=== PATIENT | male | born 2000 | race Caucasian/White ===

== ENCOUNTER 2022-05-03 10:41 | Emergency (ER) | payer OTHER, SELFPAY ==
[2022-05-03 11:11] VITALS: BP 118/86; PULSE 84; RESP 17; TEMP 36.4; O2SAT 97
--- NOTE | 2022-05-03 11:34 | ED.GENADUL_ITS ---
Discharge Plan Disposition Patient Disposition: HOME Condition: Stable Discharge Details Clinical Impression: Asthma Primary Care Provider: [place],Local ED Provider: Anni Gomez Home Meds and New Rx's Prescriptions: New prednisone 20 mg tablet 40 mg PO ONCE Qty: 10 0RF Continued albuterol 90 mcg/actuation Aerosol See Rx Instructions .ROUTE .COMPLEX Rx Instructions: Inhale 2 puffs 3-4 times per week as needed Discharge Instructions Instructions: Asthma (ED) Additional Instructions: Use your inhaler with spacer every 4 hours, 2 puffs Take the steroid as prescribed Establish care with a primary care physician you have been placed on the care management list for follow-up Discharge Data Discharge Date/Time-TO BE ENTERED AT DEPARTURE: 05/03/22 11:53 Medical Decision Making Patient appears well, no respiratory distress, lungs are clear to auscultation and no hypoxia, no indication for x-ray imaging at this time Will give a spacer as patient has an albuterol inhaler and has not been using spacer Will give course of steroids Return precautions discussed and patient expressed understanding Placed on list establish care with primary care physician and return precautions reviewed and patient expressed understanding, vital stable, low suspicion for bacterial or embolic component based on stable vitals and exam Medical Records Medical records reviewed: Yes I reviewed the patient's medical records. Lab Data Lab results reviewed: Yes I reviewed the patient's lab results. HPI General Date/Time Provider Initiated Documentation: 05/03/22 11:18 . HPI Narrative: This 21-year-old male presents with report of shortness of breath and cough for the past week. History of asthma uses inhaler without relief in symptoms. Denies any fever or chills. Denies tobacco use. Denies any chest pain, otherwise healthy reportedly. Related Data Home Medications Medication Instructions Recorded Confirmed albuterol 90 mcg/actuation aerosol See Rx Instructions .Route .COMPLEX 05/03/22 05/03/22 inhaler prednisone 20 mg tablet 40 mg PO ONCE #10 tabs 05/03/22 Previous Rx's Medication Instructions Recorded prednisone 20 mg tablet 40 mg PO ONCE #10 tabs 05/03/22 Allergies Allergy/AdvReac Type Severity Reaction Status Date / Time No Known Allergies Allergy Unverified 05/03/22 11:14 General Stated Complaint: RespSymp JAGDISH: 4 Review of Systems All systems reviewed & are unremarkable except as noted in HPI and below PFSH All Active Problems (Updated 05/03/22 @ 11:36 by KASIE Brumfield) Asthma (Chronic) Social History Smoking/Tobacco Use Status: Never Smoking risk assessment performed?: Yes Alcohol Intake: never Drug use: Never Substance use type: does not use Do you feel safe at home: Yes Do you feel safe in your relationship?: Yes Exam Const General: cooperative and comfortable Resp Effort & Inspection: normal respiratory effort Auscultation: clear to auscultation bilaterally Cardio Rate: regular rate Rhythm: regular rhythm Skin General skin exam: no rashes or lesions noted Neuro General: patient alert and patient oriented x3 Course Vital Signs Vital signs: Vital Signs Temperature 36.4 C 05/03/22 11:11 Pulse 84 05/03/22 11:11 Respiratory Rate 17 05/03/22 11:11 Blood Pressure 118/86 05/03/22 11:11 Pulse Oximetry 97 05/03/22 11:11 Temperature 36.4 C 05/03/22 11:11 Temperature Source Oral 05/03/22 11:11 Pulse 84 05/03/22 11:11 Respiratory Rate 17 05/03/22 11:11 Respiratory Effort Non-Labored 05/03/22 11:14 Blood Pressure 118/86 05/03/22 11:11 Blood Pressure Position Sitting 05/03/22 11:11 Pulse Oximetry 97 05/03/22 11:11 Oxygen Delivery Method Room Air 05/03/22 11:11 Oxygen Flow Rate 0 05/03/22 11:11 Pain Level 5 05/03/22 11:11
--- NOTE | 2022-05-03 15:47 | NUR.NOTE ---
Nursing Note: Referral given to Care Management needs PCP; asthma exacerbation/establish care; within 2 weeks,
--- NOTE | 2022-05-04 12:16 | PDOC.ERCMACT ---
- If Service Date Differs Date of service: 05/04/22 Time of Service: 12:16 Care Management Activity Note Hi presents in the ED for asthma exacerbation. At the request of ED provider, CM coordinates a referral to the [facility] to assist Hi in obtaining a follow up appointment with a medical provider.
== END 2022-05-03 11:53 | disposition home or self-care (01) ==
PROVIDERS: Emergency Provider Physician Assistant
DX: J45.909 Unspecified asthma, uncomplicated (principal)
CPT/HCPCS: 99283

== ENCOUNTER 2022-05-05 09:56 | Outpatient (CLI) | payer OTHER, SELFPAY ==
--- NOTE | 2022-05-05 | DI.RAD_ITS ---
Exam(s) XR CHEST 2V PA LATERAL EXAM: XR CHEST 2V PA LATERAL CLINICAL HISTORY: DYSPNEA, TECHNIQUE: 2D digital imaging was performed of the chest. Two images were obtained. PA and lateral views were obtained. COMPARISON: No exams were available for comparison FINDINGS: MEDIASTINUM: Normal. HEART: Normal. PULMONARY VASCULATURE: Normal. LUNGS: Clear. PLEURAL SPACE: No pleural effusion or pneumothorax. BONE:Within normal limits for the patient's age. OTHER FINDINGS:Normal. IMPRESSION: No acute pulmonary findings. DATA REPOSITORY: RADIATION DOSE DELIVERED:
== END 2022-05-05 10:16 ==
PROVIDERS: Visit Provider Physician Assistant
DX: R06.09 Other forms of dyspnea (principal)
CPT/HCPCS: 71046

== ENCOUNTER 2022-05-06 13:09 | Outpatient (CLI) | payer OTHER, SELFPAY ==
[2022-05-06] MEDS: Albuterol HFA 18 GM 200 PUFF INH IH (16:02)
[2022-05-06] MEDS: Methacholine 100 MG VIAL IH (16:02)
[2022-05-06] MEDS: Inhaler, Assist Device 1 EACH MC (16:03)
--- NOTE | 2022-05-18 15:13 | W.PFT ---
Date of service: 05/06/22 Time of Service: 14:06 Pulmonary Function Test Result Requesting Provider Aurea Kaufman Indications: Asthma Interpretation Spirometry: There is no airflow obstruction at baseline. There was a 12% decrease in FEV1% with administration of 16mg/mL methacholine. Impression Normal spirometry. Negative methacholine challenge test. Clinical Correlation therefore is recommended.
== END 2022-05-06 13:10 | disposition home or self-care (01) ==
PROVIDERS: Visit Provider Physician Assistant
DX: J45.909 Unspecified asthma, uncomplicated (principal); R06.09 Other forms of dyspnea; R05.8 Other specified cough
CPT/HCPCS: 94060; 94070; J7674

== ENCOUNTER 2022-07-12 15:09 | Outpatient (CLI) | payer OTHER, SELFPAY ==
[2022-07-12 16:56] LABS: Abs Immature Grans 0.06 10^3/uL (0.0-0.06); Absolute Basophil Count 0.05 10^3/uL (0.0-0.2); Absolute Eosinophil Count 0.07 10^3/uL (0.0-0.7); Absolute Lymphocyte Count 1.56 10^3/uL (1.2-3.4); Basophils % 0.4; Eosinophils % 0.5; HCT 44.5 % (40.0-50.0); HGB 14.3 g/dL (13.5-17.5); Immature Grans % 0.4; Lymphocytes % 11.5; MCH 27.4 pg (27.0-33.0); MCHC 32.1 % (32.0-36.0); MCV 85 fL (80-95); Monocytes % 6.3; Neutrophils % 80.9; Platelet Count 337 10^3/uL (130-400); RBC 5.22 10^6/uL (4.36-5.78); RDW 12.7 % (11.8-14.1); RDW-SD 38.8 fL
[2022-07-12 16:58] LABS: Absolute Monocyte Count 0.86 10^3/uL (0.1-0.8)
[2022-07-12 17:34] LABS: TSH (W/Ref FT4) 0.92 uIU/mL (0.36-3.74)
== END 2022-07-12 15:10 | disposition home or self-care (01) ==
LOC: PUL 15:10 → LBN 16:40
PROVIDERS: PCP Physician Assistant; Visit Provider Student in an Organized Health Care Education/Training Program
DX: R05.8 Other specified cough (principal); R06.09 Other forms of dyspnea; R06.02 Shortness of breath
CPT/HCPCS: 84443; 85025; 86140

== ENCOUNTER 2022-07-16 01:51 | Outpatient (CLI) | payer OTHER, SELFPAY ==
[2022-07-16] MEDS: Albuterol HFA 18 GM 200 PUFF INH IH (13:35)
[2022-07-16] MEDS: Inhaler, Assist Device 1 EACH MC (13:35)
--- NOTE | 2022-07-16 13:42 | W.PFT ---
Date of service: 07/16/22 Time of Service: 12:33 Pulmonary Function Test Result Indications: Dyspnea on exertion Interpretation Spirometry: There is no airflow limitation. There is no significant bronchodilator response. Normal MIP. MEP is low. Lung Volumes: Normal lung volumes. Diffusion Capacity: Normal diffusion. Airway Pressure: Normal airways resistance. Impression Normal pulmonary function testing. A low MEP alone has unclear clinical significance. Clinical Correlation therefore is recommended.
== END 2022-07-16 01:52 | disposition home or self-care (01) ==
LOC: RT 01:51
PROVIDERS: Visit Provider Student in an Organized Health Care Education/Training Program
DX: R06.09 Other forms of dyspnea (principal)
CPT/HCPCS: 94060; 94726; 94729

== ENCOUNTER 2022-11-24 19:28 | Emergency (ER) | payer SELFPAY ==
[2022-11-24 19:30] VITALS: BP 137/83; PULSE 100; RESP 12; TEMP 36.6; O2SAT 100
[2022-11-24 21:40] LABS: Abs Immature Grans 0.04 10^3/uL (0.0-0.06); Absolute Basophil Count 0.06 10^3/uL (0.0-0.2); Absolute Lymphocyte Count 1.86 10^3/uL (1.2-3.4); Absolute Monocyte Count 0.88 10^3/uL (0.1-0.8); Basophils % 0.5; Eosinophils % 0.8; HCT 43.6 % (40.0-50.0); HGB 14.4 g/dL (13.5-17.5); Immature Grans % 0.3; Lymphocytes % 15.2; MCH 27.5 pg (27.0-33.0); MCV 83 fL (80-95); MPV 9.5 fL (8.0-11.0); Monocytes % 7.2; Platelet Count 326 10^3/uL (130-400); RBC 5.23 10^6/uL (4.36-5.78); RDW 12.5 % (11.8-14.1); WBC 12.24 10^3/uL (4.4-10.8)
--- NOTE | 2022-11-24 21:45 | DI.CT_ITS ---
Exam(s) CT CHEST/ABD/PEL W EXAM: CT CHEST/ABD/PEL W CLINICAL HISTORY: ABD pain RLQ. TECHNIQUE: Imaging Protocol: Axial computed tomography images with coronal and sagittal reformatted images were created and reviewed CONTRAST MATERIAL: Intravenous: Omnipaque 350 Contrast volume:100 ml Oral: None COMPARISON: No exams were available for comparison FINDINGS: CHEST: LUNGS: There are no infiltrates nor pleural effusions. No ominous nodules. No findings in the trach ea and mainstem bronchi. No bronchiectasis.. MEDIASTINUM: There is no hilar nor mediastinal adenopathy. Visualized thyroid unremarkable. CARDIAC: Heart size is normal. There is no pericardial effusion.Caliber of the thoracic aorta is wit hin normal limits. OSSEOUS: No significant osseous lesions.. ABDOMEN: There is no ascites. LIVER: There are no focal hepatic lesions nor dilatation of intrahepatic ducts. GALLBLADDER/BILIARY: No obvious gallbladder pathology. CBD is not dilated. PANCREAS: No evidence of pancreatic mass nor dilatation of the pancreatic duct. SPLEEN: Spleen is not enlarged. There are no intrasplenic lesions. Splenic and portal veins are medina nt. ADRENALS: There are no significant adrenal masses. KIDNEYS: No calculi nor hydronephrosis. No solid renal masses. No cysts evident. ABDOMINAL AORTA: Abdominal aorta is not enlarged. LYMPH NODES: There is no retroperitoneal nor paraaortic adenopathy. ABDOMINAL WALL: No evidence of significant anterior abdominal wall nor inguinal hernia. GI: : Diameter ismostly fluid-filled and upper normal diameter. Correlation with diarrhea. Mild dif fuse small-bowel enteritis pattern noted. There is no evidence of small-bowel obstruction. PELVIS: LYMPH NODES: There is no intrapelvic nor inguinal adenopathy. GI: No evidence of appendicitis.No evidence of sigmoid diverticulitis. URINARY BLADDER: No calculi nor masses evident REPRODUCTIVE: Prostate gland is not enlarged. Seminal vesicles unremarkable. OSSEOUS: No significant osseous lesions. No fractures. SI joints unremarkable. IMPRESSION: 1. Colon is filled with fluid and upper normal diameter. There also appears to be an element of smal l-bowel enteritis pattern. No evidence of small bowel obstruction, free air, nor abscess. 2. No evidence of acute appendicitis nor diverticulitis. 3. No significant intrathoracic findings. RADIATION DOSE DELIVERED: 1,323.93mGy.cm Total DLP DATA REPOSITORY: All CT scans at this facility are submitted to the National Radiology Data Registry (NRDR) Dose Index Registry (DIR) with the [employer] (ACR). RADIATION OPTIMIZATION: All CT scans at this facility use at least one of these dose optimization te chniques: automated exposure control; mA and/or kV adjustment per patient size (includes targeted exa ms where dose is matched to clinical indication); or iterative reconstruction.
[2022-11-24 21:54] LABS: Lipase 15 U/L (16-77)
[2022-11-24 22:00] LABS: ALT 28 U/L (16-63); AST 23 U/L (15-37); Albumin 4.1 g/dL (3.4-5.0); Alkaline Phosphatase 85 U/L (46-116); Anion Gap 7.6 mmol/L (3-11); BUN 11 mg/dL (7-18); Bilirubin, Total 0.6 mg/dL (0.2-1.0); CO2 29.4 mmol/L (21.0-32.0); Chloride 104 mmol/L (98-107); Estimated GFR 109.81 (mL/min/1.73m2); Glucose 83 mg/dL (74-106); Magnesium 2.7 mg/dL (1.8-2.4); Potassium 4.1 mmol/L (3.5-5.1); Sodium 141 mmol/L (136-145)
[2022-11-24] MEDS: Omnipaque 350 MG/ML 100 ML BTL IJ (22:43)
[2022-11-24] MEDS: Normal Saline - Diluent 50 ML VIAL IV (22:44)
--- NOTE | 2022-11-24 22:53 | ED.GENADUL_ITS ---
Discharge Plan Disposition Patient Disposition: Home Discharge Details Clinical Impression: Colitis Primary Care Provider: Unknown,Unknown ED Provider: Bari Seo Home Meds and New Rx's Prescriptions: Continued albuterol 90 mcg/actuation Aerosol See Rx Instructions .ROUTE .COMPLEX Rx Instructions: Inhale 2 puffs 3-4 times per week as needed fluoxetine 20 mg capsule 20 mg PO DAILY Patient Comments: TAKE 1 CAPSULE BY MOUTH EVERY DAY IN THE MORNING Discharge Instructions Instructions: Colitis (ED) Additional Instructions: At this time your labs did show some response to the medication and CT imaging showed some irritation to your colon. It is recommended that you stay well- hydrated and slowly advance your diet as tolerated. Please return for any new or significant worsening of symptoms otherwise follow-up with your primary care provider as needed. Referrals: Primary Care Provider [Outside] (As needed for reassessment) Discharge Data Discharge Date/Time-TO BE ENTERED AT DEPARTURE: 11/25/22 00:12 Medical Decision Making Patient presenting to the emergency department for chief complaint of abdominal pain. Patient reports that this started after taking some mag citrate for what he felt was some constipation. He had not had a bowel movement in the past couple days but states for about a week or more he has been having some abdominal discomfort. Over the past couple days he has had some appetite changes subjective fevers. Reason he came in was that he did have some bowel movements which somewhat improved his symptoms but then he started having worsen ing belly pain. Physical exam is unremarkable beyond the fact that patient does have point tenderness in the right lower quadrant. While I feel there is a high suspicion that this is secondary to some irritation of the colon from the mag citrate we will check patient's labs given that symptoms have been going on somewhat for a while. Review of labs does show a leukocytosis, magnesium is slightly high at 2.7 lipase is low otherwise all other labs within normal range. Given the leukocytosis and and belly pain that has been going on for days with some nausea and reported fever will perform CT imaging. Patient did state that he was going to be having a CT tomorrow of his chest for cough and occasional shortness of breath. Given this will just perform chest abdomen pelvis CT to reduce r adiation exposure to patient. Review of CT imaging and radiologist interpretation shows some signs of enterocolitis which I feel is secondary to patient's use of mag citrate. Reassessed patient he did state some improvement of symptoms so will discharge patient to slowly advance diet as tolerated, stay well-hydrated, and follow-up with primary care provider as needed. After discussion of diagnosis and plan of care patient has no further needs, questions, or concerns and states clear understanding to return to the emergency department for any worsening symptoms. This documentation was generated using [employer] dictation system, please disregard any oddities of phrase or misspellings. Imaging Data Radiologic Study: Imaging: X-Ray and CT Scan Radiologist's impression: Exam(s) PROCEDURE INFORMATION: Exam: CT Chest With Contrast; Diagnostic Exam date and time: 11/24/2022 10:44 PM Age: 22 years old Clinical indication: Other: Abd pain rlq; Cough TECHNIQUE: Imaging protocol: Diagnostic computed tomography of the chest with contrast. 3D rendering (Not supervised by radiologist): MIP and/or 3D reconstructed images were created by the technologist. Contrast material: 350; Contrast volume: 100 ml; Contrast route: INTRAVENOUS (IV); COMPARISON: CR XR CHEST 2V PA LATERAL 05/05/2022 2:33 PM FINDINGS: Lungs: There is no evidence of focal pulmonary consolidation. No evidence of pulmonary parenchymal inflammatory changes. There is no evidence of pulmonary masses. Pleural spaces: There is no evidence of pneumothorax. There are no pleural effusions present. Heart: The cardiac structures are normal. Mediastinal space: A normal amount of residual thymus tissue is present in the anterior/superior mediastinum. Lymph nodes: There is no evidence of lymphadenopathy. Vasculature: The pulmonary arteries are normal in caliber. The aorta and great vessels appear normal. Intraperitoneal space: Please see CT of the abdomen and pelvis. Bones/joints: The spine, sternum, ribs, and pectoral girdles show no evidence of acute abnormality. Soft tissues: There are no soft tissue masses or fluid collections.There is nonspecific gynecomastia. Other findings: The mediastinal structures are normal. IMPRESSION: No active cardiopulmonary disease . PROCEDURE INFORMATION: Exam: CT Abdomen And Pelvis With Contrast Exam date and time: 11/24/2022 10:44 PM Age: 22 years old Clinical indication: Other: Abd pain rlq; Cough TECHNIQUE: Imaging protocol: Computed tomography of the abdomen and pelvis with contrast. 3D rendering (Not supervised by radiologist): MIP and/or 3D reconstructed images were created by the technologist. Contrast material: 350; Contrast volume: 100 ml; Contrast route: INTRAVENOUS (IV); COMPARISON: CR XR CHEST 2V PA LATERAL 05/05/2022 2:33 PM FINDINGS: Lungs: Please see CT of the chest and lungs. The lungs are normal. There is no evidence of focal pulmonary consolidation. Pleural spaces: There are no pleural effusions present. Heart: The cardiac structures are normal. There is no evidence of pneumothorax. Liver: There are no focal liver lesions present. There is no evidence of intrahepatic or extrahepatic biliary ductal dilation. Gallbladder and bile ducts: The gallbladder is normal. There is no cholelitiasis, wall thickening or pericholecystic fluid to suggest cholecystitis. Pancreas: The pancreas is normal. Spleen: The spleen is normal. Adrenal glands: The adrenal glands are normal. Kidneys and ureters: The kidneys are normal. Stomach and bowel: There are diffuse fluid filled loops of small bowel and colon with scattered air fluid levels. The bowel loops are mildly distended. No associated bowel wall thickening or inflammatory changes. No evidence of obstruction. Findings most consistent with diffuse enterocolitis. There is no evidence of intestinal obstruction. No diverticulosis is present. Appendix: A normal appendix is identified. There is no evidence of distention or periappendiceal inflammation to suggest appendicitis. Intraperitoneal space: There is no free intraperitoneal air. There is no evidence of free intraperitoneal or pelvic fluid. There are no soft tissue masses or fluid collections. Vasculature: The aorta is normal without evidence of significant atherosclerosis or aneurysmal disease. The peripheral arterial vascular system visualized is unremarkable. The portal venous system visualized is unremarkable. The venous system visualized is unremarkable. Lymph nodes: There is no evidence of lymphadenopathy. Urinary bladder: The bladder is normal. Reproductive: The prostate is normal. Bones/joints: The skeletal structures and soft tissues show no evidence of fracture or other acute processes. Soft tissues: The extra-abdominal soft tissues are normal. IMPRESSION: There are diffuse fluid filled loops of small bowel and colon with scattered air fluid levels. The bowel loops are mildly distended. No associated bowel wall thickening or inflammatory changes. No evidence of obstruction. Findings most consistent with diffuse enterocolitis. HPI General Mode of arrival: ambulatory . Date/Time Provider Initiated Documentation: 11/24/22 19:35 . Limitations to Documentation: no limitations . Information obtained by: patient and RN notes reviewed . History of Present Illness 22 year old M presents to the emergency department with the chief complaint of Abdominal pain, described as moderate, with intensity rated at 6. Quality is described as aching, and is localized to the abdomen. Patient reports no radiation. Patient started experiencing this hour(s) (7) and it has been constant. No relieving factors improve symptom(s), Medic ation worsens symptoms . Patient notes fever/chills and loss of appetite. Related Data Home Medications Medication Instructions Recorded Confirmed albuterol 90 mcg/actuation aerosol See Rx Instructions .Route .COMPLEX 05/03/22 11/24/22 inhaler fluoxetine 20 mg capsule 20 mg PO DAILY 11/24/22 11/24/22 Allergies Allergy/AdvReac Type Severity Reaction Status Date / Time seasonal Allergy Unknown Uncoded 11/24/22 19:36 General Stated Complaint: GenMedical JAGDISH: 5 Review of Systems Constitutional Constitutional: Denies chills, Reports fever(s) (Subjective) and Reports poor appetite Cardiovascular Cardiovascular: Denies chest pain and Denies dyspnea Respiratory Respiratory: Denies cough and Denies dyspnea Gastrointestinal Gastrointestinal: Reports as per HPI, Reports abdominal pain, Denies melena, Denies change in bowel habits, Denies constipation, Reports diarrhea, Reports nausea and Denies vomiting Genitourinary Genitourinary: Denies hematuria, Denies difficulty urinating, Denies urinary hesitancy, Denies urinary incontinence and Denies urinary urgency Integumentary/Breasts Skin/Breast: Denies rash PFSH All Active Problems (Updated 11/24/22 @ 23:33 by Bari Seo NP) Colitis (Acute) Dyspnea (Acute) Cough (Acute) Social History Smoking/Tobacco Use Status: Never Smoking risk assessment performed?: Yes Alcohol Intake: never Drug use: Never Substance use type: does not use Do you feel safe at home: Yes Do you feel safe in your relationship?: Yes Exam Const General: cooperative Orientation: alert, awake and oriented x3 Resp Effort & Inspection: normal respiratory effort and able to speak in complete sentences Auscultation: clear to auscultation bilaterally Cardio Rate: regular rate Rhythm: regular rhythm Heart Sounds: S1 normal and S2 normal GI Palpation: soft, no hepatosplenomegaly, not firm, no guarding, no masses, no pulsatile masses, not rigid, no splenomegaly and tender in the RLQ and with rebound tenderness; Laughlin's sign negative, psoas sign negative and Rovsing's sign negative Auscultation: hyperactive bowel sounds Back/Spine/Pelvis Back: no CVA tenderness Neuro General: patient alert, patient awake, patient oriented x3, gait normal and moves all extremities Course Vital Signs Vital signs: Vital Signs Temperature 36.6 C 11/24/22 19:30 Pulse 100 H 11/24/22 19:30 Respiratory Rate 12 11/24/22 19:30 Blood Pressure 137/83 11/24/22 19:30 Pulse Oximetry 100 11/24/22 19:30 Temperature 36.6 C 11/24/22 19:30 Pulse 100 H 11/24/22 19:30 Respiratory Rate 12 11/24/22 19:30 Respiratory Effort Normal 11/24/22 19:34 Blood Pressure 137/83 11/24/22 19:30 Blood Pressure Position Sitting 11/24/22 19:30 Pulse Oximetry 100 11/24/22 19:30 Oxygen Delivery Method Room Air 11/24/22 19:30 Oxygen Flow Rate 0 11/24/22 19:30 Pain Level 5 11/24/22 19:47 Lab/Test Results Lab/Test Results: Laboratory Tests Range/Units 11/24/22 11/24/22 11/24/22 21:32 21:32 21:32 WBC (4.4-10.8) 10^3/uL 12.24 H RBC (4.36-5.78) 10^6/uL 5.23 Hgb (13.5-17.5) g/dL 14.4 Hct (40.0-50.0) % 43.6 MCV (80-95) fL 83 MCH (27.0-33.0) pg 27.5 MCHC (32.0-36.0) % 33.0 RDW (11.8-14.1) % 12.5 Plt Count (130-400) 10^3/uL 326 MPV (8.0-11.0) fL 9.5 Immature Gran % 0.3 Neutrophils % 76.0 Lymphocytes % 15.2 Monocytes % 7.2 Eosinophils % 0.8 Basophils % 0.5 Nucleated RBC % (0.0-0.3) % 0.0 Absolute Neutrophils (1.2-6.7) 10^3/uL 9.30 H Absolute Lymphocytes (1.2-3.4) 10^3/uL 1.86 Absolute Monocytes (0.1-0.8) 10^3/uL 0.88 H Absolute Eosinophils (0.0-0.7) 10^3/uL 0.10 Absolute Basophils (0.0-0.2) 10^3/uL 0.06 Sodium (136-145) mmol/L 141 Potassium (3.5-5.1) mmol/L 4.1 Chloride (98-107) mmol/L 104 Carbon Dioxide (21.0-32.0) mmol/L 29.4 Anion Gap (3-11) mmol/L 7.6 BUN (7-18) mg/dL 11 Creatinine (0.70-1.30) mg/dL 1.0 Est GFR (CKD-EPI 2020) (mL/min/1.73m2) 109.81 Glucose (74-106) mg/dL 83 Calcium (8.5-10.1) mg/dL 9.0 Magnesium (1.8-2.4) mg/dL 2.7 H Total Bilirubin (0.2-1.0) mg/dL 0.6 AST (15-37) U/L 23 ALT (16-63) U/L 28 Alkaline Phosphatase (46-116) U/L 85 Total Protein (6.4-8.2) g/dL 8.0 Albumin (3.4-5.0) g/dL 4.1 Lipase (16-77) U/L 15 L
--- NOTE | 2022-11-24 23:24 | DI.VRAD_ITS ---
PROCEDURE INFORMATION: Exam: CT Chest With Contrast; Diagnostic Exam date and time: 11/24/2022 10:44 PM Age: 22 years old Clinical indication: Other: Abd pain rlq; Cough TECHNIQUE: Imaging protocol: Diagnostic computed tomography of the chest with contrast. 3D rendering (Not supervised by radiologist): MIP and/or 3D reconstructed images were created by the technologist. Contrast material: 350; Contrast volume: 100 ml; Contrast route: INTRAVENOUS (IV); COMPARISON: CR XR CHEST 2V PA LATERAL 05/05/2022 2:33 PM FINDINGS: Lungs: There is no evidence of focal pulmonary consolidation. No evidence of pulmonary parenchymal inflammatory changes. There is no evidence of pulmonary masses. Pleural spaces: There is no evidence of pneumothorax. There are no pleural effusions present. Heart: The cardiac structures are normal. Mediastinal space: A normal amount of residual thymus tissue is present in the anterior/superior mediastinum. Lymph nodes: There is no evidence of lymphadenopathy. Vasculature: The pulmonary arteries are normal in caliber. The aorta and great vessels appear normal. Intraperitoneal space: Please see CT of the abdomen and pelvis. Bones/joints: The spine, sternum, ribs, and pectoral girdles show no evidence of acute abnormality. Soft tissues: There are no soft tissue masses or fluid collections.There is nonspecific gynecomastia. Other findings: The mediastinal structures are normal. IMPRESSION: No active cardiopulmonary disease . PROCEDURE INFORMATION: Exam: CT Abdomen And Pelvis With Contrast Exam date and time: 11/24/2022 10:44 PM Age: 22 years old Clinical indication: Other: Abd pain rlq; Cough TECHNIQUE: Imaging protocol: Computed tomography of the abdomen and pelvis with contrast. 3D rendering (Not supervised by radiologist): MIP and/or 3D reconstructed images were created by the technologist. Contrast material: 350; Contrast volume: 100 ml; Contrast route: INTRAVENOUS (IV); COMPARISON: CR XR CHEST 2V PA LATERAL 05/05/2022 2:33 PM FINDINGS: Lungs: Please see CT of the chest and lungs. The lungs are normal. There is no evidence of focal pulmonary consolidation. Pleural spaces: There are no pleural effusions present. Heart: The cardiac structures are normal. There is no evidence of pneumothorax. Liver: There are no focal liver lesions present. There is no evidence of intrahepatic or extrahepatic biliary ductal dilation. Gallbladder and bile ducts: The gallbladder is normal. There is no cholelitiasis, wall thickening or pericholecystic fluid to suggest cholecystitis. Pancreas: The pancreas is normal. Spleen: The spleen is normal. Adrenal glands: The adrenal glands are normal. Kidneys and ureters: The kidneys are normal. Stomach and bowel: There are diffuse fluid filled loops of small bowel and colon with scattered air fluid levels. The bowel loops are mildly distended. No associated bowel wall thickening or inflammatory changes. No evidence of obstruction. Findings most consistent with diffuse enterocolitis. There is no evidence of intestinal obstruction. No diverticulosis is present. Appendix: A normal appendix is identified. There is no evidence of distention or periappendiceal inflammation to suggest appendicitis. Intraperitoneal space: There is no free intraperitoneal air. There is no evidence of free intraperitoneal or pelvic fluid. There are no soft tissue masses or fluid collections. Vasculature: The aorta is normal without evidence of significant atherosclerosis or aneurysmal disease. The peripheral arterial vascular system visualized is unremarkable. The portal venous system visualized is unremarkable. The venous system visualized is unremarkable. Lymph nodes: There is no evidence of lymphadenopathy. Urinary bladder: The bladder is normal. Reproductive: The prostate is normal. Bones/joints: The skeletal structures and soft tissues show no evidence of fracture or other acute processes. Soft tissues: The extra-abdominal soft tissues are normal. IMPRESSION: There are diffuse fluid filled loops of small bowel and colon with scattered air fluid levels. The bowel loops are mildly distended. No associated bowel wall thickening or inflammatory changes. No evidence of obstruction. Findings most consistent with diffuse enterocolitis. Dictated and Authenticated by: Andrew Mcbride MD. Ordering:THOMAS Candelaria MD
== END 2022-11-25 00:12 | disposition home or self-care (01) ==
PROVIDERS: Emergency Provider Nurse Practitioner Family
DX: K52.9 Noninfective gastroenteritis and colitis, unspecified (principal)
CPT/HCPCS: 74177; 80053; 83690; 99285; 71260; 83735; 85025; 99284; J3490

== ENCOUNTER 2024-03-11 13:25 | Emergency (ER) | payer OTHER, SELFPAY ==
[2024-03-11] VITALS (22 sets, daily range): BP systolic 113–129; BP diastolic 57–83; PULSE 76–125; RESP 13–26; TEMP 36.8–36.9; O2SAT 96–99
[2024-03-11 14:14] LABS: Abs Immature Grans 0.04 10^3/uL (0.0-0.06); Absolute Basophil Count 0.03 10^3/uL (0.0-0.2); Absolute Eosinophil Count 0.01 10^3/uL (0.0-0.7); Absolute Lymphocyte Count 1.13 10^3/uL (1.2-3.4); Absolute Monocyte Count 0.95 10^3/uL (0.1-0.8); Absolute Neutrophil Count 4.28 10^3/uL (1.2-6.7); Basophils % 0.5 %; Eosinophils % 0.2 %; HGB 14.4 g/dL (13.5-17.5); Immature Grans % 0.6 %; Lymphocytes % 17.5 %; MCH 27.9 pg (27.0-33.0); MCV 87 fL (80-95); MPV 9.6 fL (8.0-11.0); Monocytes % 14.8 %; Neutrophils % 66.4 %; Platelet Count 252 10^3/uL (130-400); RBC 5.17 10^6/uL (4.36-5.78); RDW 12.9 % (11.8-14.1); RDW-SD 41.2 fL; WBC 6.44 10^3/uL (4.4-10.8)
--- NOTE | 2024-03-11 14:27 | ED.GENADUL_ITS ---
Discharge Plan Discharge Details Chief Complaint: GenMedical Primary Care Provider: Unknown,Unknown ED Provider: Hernan Aragon Home Meds and New Rx's Prescriptions: No Action No Known Home Meds [facility] General Mode of arrival: ambulatory . Date/Time Provider Initiated Documentation: 03/11/24 13:36 . Limitations to Documentation: no limitations . Information obtained by: patient . HPI Narrative: 23-year-old male presents with chief complaint of rectal bleeding. Patient notes diarrhea mixed with bright red blood over the past 3 to 4 days. He has associated fever with muscle aches as well. He does note some abdominal discomfort and cramping mid abdomen. Denies melena. Denies rectal trauma. Related Data Home Medications ?Medication ?Instructions ?Recorded ?Confirmed Unknown [No Known Home Meds] 03/11/24 03/11/24 Allergies Allergy/AdvReac Type Severity Reaction Status Date / Time lactose AdvReac Mild Nausea Verified 03/11/24 13:31 seasonal Allergy Unknown Other (See Uncoded 03/11/24 13:31 Comment) General Stated Complaint: GenMedical JAGDISH: 3 Review of Systems All systems reviewed & are unremarkable except as noted in HPI and below Constitutional Constitutional: Reports fever(s) Gastrointestinal Gastrointestinal: Reports as per HPI Exam Const General: cooperative and no acute distress HENMT Mouth: moist mucous membranes Eyes Conjunctivae: normal conjunctivae Sclera: normal sclerae Resp Auscultation: clear to auscultation bilaterally, no rales, no rhonchi and no wh eezes Cardio Rate: regular rate and not tachycardic Rhythm: regular rhythm GI Palpation: soft, not firm, no guarding, no masses and not rigid Auscultation: normal bowel sounds Rectal Exam: visual inspection normal Other: no hemorrhoid or blood on external exam Skin General skin exam: no rashes or lesions noted Neuro General: patient alert, patient awake and tone normal Extrem General: no edema Course Vital Signs Vital signs: Vital Signs Temperature 36.9 C 03/11/24 13:27 Pulse 108 H 03/11/24 13:27 Respiratory Rate 15 03/11/24 13:27 Blood Pressure 129/83 03/11/24 13:27 Pulse Oximetry 97 03/11/24 13:27 Temperature 36.9 C 03/11/24 13:27 Temperature Source Oral 03/11/24 13:27 Pulse 108 H 03/11/24 13:27 Respiratory Rate 15 03/11/24 13:27 Respiratory Effort Normal 03/11/24 13:32 Blood Pressure 129/83 03/11/24 13:27 Pulse Oximetry 97 03/11/24 13:27 Oxygen Delivery Method Room Air 03/11/24 13:27 Oxygen Flow Rate 0 03/11/24 13:27 Pain Level 7 03/11/24 13:27 Comment rectal pain 03/11/24 13:27 Lab/Test Results Lab/Test Results: Laboratory Tests Range/Units 03/11/24 13:48 WBC (4.4-10.8) 10^3/uL 6.44 RBC (4.36-5.78) 10^6/uL 5.17 Hgb (13.5-17.5) g/dL 14.4 Hct (40.0-50.0) % 45.0 MCV (80-95) fL 87 MCH (27.0-33.0) pg 27.9 MCHC (32.0-36.0) % 32.0 RDW (11.8-14.1) % 12.9 Plt Count (130-400) 10^3/uL 252 MPV (8.0-11.0) fL 9.6 Immature Gran % % 0.6 Neutrophils % % 66.4 Lymphocytes % % 17.5 Monocytes % % 14.8 Eosinophils % % 0.2 Basophils % % 0.5 Nucleated RBC % (0.0-0.3) % 0.0 Absolute Neutrophils (1.2-6.7) 10^3/uL 4.28 Absolute Lymphocytes (1.2-3.4) 10^3/uL 1.13 L Absolute Monocytes (0.1-0.8) 10^3/uL 0.95 H Absolute Eosinophils (0.0-0.7) 10^3/uL 0.01 Absolute Basophils (0.0-0.2) 10^3/uL 0.03 Medical Decision Making 1432 --23-year-old male here with diarrhea with bright red blood per rectum over the past 3 days with associated myalgias and fever. Patient is currently afebrile, slightly tachycardiac on arrival and normotensive. Concern for infectious diarrhea. plan to send stool culture. Will check cbc to assess for anemia. Patient has had colitis flare in the past. Consider ulcerative colitis. Given tenderness and fever, will obtain CT of the abd/pelv to assess for acute life threatening surgical conditions including bowel perforation and fulminant colitis. Quality:SDOH Health Related Social Needs: No Data to Display PFSH All Active Problems Dyspnea (Acute) Cough (Acute) Social History Smoking/Tobacco Use Status: Never Smoking risk assessment performed?: Yes Alcohol Intake: never Drug use: Never Substance use type: does not use Housing: other Do you feel safe at home: Yes Do you feel safe in your relationship?: Yes
[2024-03-11 14:29] LABS: ALT 28 U/L (16-63); AST 22 U/L (15-37); Albumin 3.9 g/dL (3.4-5.0); Alkaline Phosphatase 79 U/L (46-116); Anion Gap 7.8 mmol/L (3-11); BUN 15 mg/dL (7-18); Bilirubin, Total 0.47 mg/dL (0.2-1.0); CO2 29.2 mmol/L (21.0-32.0); CREATININE 1.1 mg/dL (0.70-1.30); Calcium 9.3 mg/dL (8.5-10.1); Chloride 103 mmol/L (98-107); Estimated GFR 97.34 (mL/min/1.73m2); Glucose 95 mg/dL (74-106); Potassium 3.8 mmol/L (3.5-5.1); Sodium 140 mmol/L (136-145); Total Protein 7.9 g/dL (6.4-8.2)
--- NOTE | 2024-03-11 14:45 | DI.CT_ITS ---
Exam(s) CT ABDOMEN PELVIS W EXAM: CT ABDOMEN PELVIS W CLINICAL HISTORY: abd pain, BRBPR, loose stool, fever. TECHNIQUE: Imaging Protocol: Axial computed tomography images with coronal and sagittal reformatted images were created and reviewed CONTRAST MATERIAL: Intravenous: Omnipaque 350 Contrast volume:100 ml Oral: no COMPARISON: CT CT CHEST/ABD/PEL W from 11/24/2022 FINDINGS: ABDOMEN and PELVIS: Lung Bases: No acute findings. Liver: Normal density. No suspicious mass. Gallbladder and biliary tract: No radiodense calculus. No biliary dilation. Pancreas: Normal density. No abnormal calcifications or inflammatory process. No evidence of mass. Spleen: Normal. Kidneys: Normal size, contour and axis. No radiodense stones. No obstructive uropathy. No suspicious masses seen. Adrenal glands: No masses seen. Vasculature: Abdominal aorta non-dilated. Soft tissues: Unremarkable. Bladder: No gross wall thickening. No calculi.No focal mass. Bowel: No obstruction. No bowel wall thickening. Appendix normal. Left side of the colon and rectu m are free of stool. Moderate stool in right colon and transverse colon. No fluid within colon. Peritoneal cavity: No ascites. No focal collection. No mesenteric inflammatory response. Bones: Unremarkable for age. Reproductive organs: Unremarkable. Lymph nodes: No pathologically enlarged lymph nodes. IMPRESSION:: No acute abnormality in the abdomen or pelvis. RADIATION DOSE DELIVERED: Total DLP DATA REPOSITORY: All CT scans at this facility are submitted to the National Radiology Data Registry (NRDR) Dose Index Registry (DIR) with the [employer] (A[employer]). RADIATION OPTIMIZATION: All CT scans at this facility use at least one of these dose optimization te chniques: automated exposure control; mA and/or kV adjustment per patient size (includes targeted exa ms where dose is matched to clinical indication); or iterative reconstruction.
[2024-03-11 15:11] LABS: COVID-19 PCR Negative (Negative); Influenza A PCR Negative (Negative); Influenza B PCR Negative (Negative); RSV PCR Negative (Negative)
[2024-03-11 15:14] LABS: Source Nasopharynx
[2024-03-11] MEDS: Normal Saline - Diluent 50 ML VIAL IJ (15:45)
[2024-03-11] MEDS: Omnipaque 350 MG/ML 100 ML BTL IJ (15:45)
--- NOTE | 2024-03-11 16:18 | W.EDPROG ---
Date of service: 03/11/24 Time of Service: 16:00 Medical Decision Making Handoff report received from Dr. Aragon, daytime provider. Please see his note for full HPI, physical exam, and interpretation of labs. Hi is a 23-year-old male who presents to the emergency department today for evaluation of 4 days of lower abdominal cramping, feeling feverish, and grossly bloody soft stools 3-4 times a day. He reports he has been feeling generally unwell, so he has been laying over the weekend. He does have a history of colitis in the past that was treated with liquid diet. Physical exam significant for mild diffuse tenderness all over abdomen, no rigidity or guarding. Patient is in no acute distress. Labs all reassuring, no acute abnormalities. Fecal sample obtained, sent for bacterial pathogens. While in the emergency department Hi had a CT abdomen/pelvis performed with contrast, significant for bowel thickening of the distal rectosigmoid and rectum note review mild pericolonic inflammatory changes, consistent with colitis. Possible ulcerative colitis, as this is not his first episode of colitis. No indications at this time for antibiotics, especially with concern for risk of HUS with e.coli. If diarrhea persists beyond 1 week, patient is unable to tolerate fluids/enzymes dehydration, or worsening symptoms patient may benefit from antibiotics at that time. Reviewed discharge instructions with patient, including importance of follow-up with general surgery for colonoscopy for further evaluation. He does have a PCP in [place], is attending college locally. He is agreeable with plan of care, including liquid diet and follow-up for colonoscopy. Reviewed red flags indicate need for return to emergency care Imaging Data Radiologic Study: Radiologist's impression: Exam: CT Abdomen And Pelvis With Contrast Exam date and time: 03/11/2024 3:47 PM Age: 23 years old Clinical indication: Other: Abd pain, brbpr, loose stool, fever TECHNIQUE: Imaging protocol: Computed tomography of the abdomen and pelvis with contrast. Contrast material: OMNIPAQUE 350; Contrast volume: 100 ml; Contrast route: INTRAVENOUS (IV); COMPARISON: CT CHEST/ABD/PEL W 11/24/2022 10:44 PM FINDINGS: Liver: Normal. No mass. Gallbladder and biliary ducts: Normal. No calcified stones. No ductal dilation. Pancreas: Normal. No ductal dilation. Spleen: Normal. No splenomegaly. Adrenal glands: Normal. No mass. Kidneys and ureters: There is no evidence of renal or ureteral calcifications. Stomach and bowel: Bowel wall thickening in the region of the distal rectosigmoid and rectum with mild pericolonic inflammatory changes (series 4 image 734, 735.). This may represent colitis/proctitis in the appropriate clinical setting. Appendix: Normal appendix Intraperitoneal space: Unremarkable. No free air. No significant fluid collection. Vasculature: Unremarkable. No abdominal aortic aneurysm. Lymph nodes: Unremarkable. No enlarged lymph nodes. Urinary bladder: Bladder is distended 8.7 cm Reproductive: Unremarkable as visualized. Bones/joints: Unremarkable. No acute fracture. Soft tissues: Unremarkable. IMPRESSION: Bowel wall thickening in the region of the distal rectosigmoid and rectum with mild pericolonic inflammatory changes (series 4 image 734, 735.). This may represent colitis/proctitis in the appropriate clinical setting. Quality:SDOH Health Related Social Needs: No Data to Display Exam Const General: cooperative, healthy appearing, comfortable and no acute distress Nutritional Appearance: average body habitus Resp Effort & Inspection: normal respiratory effort and able to speak in complete sentences GI Inspection: normal to inspection Palpation: soft, not firm, no guarding and nontender (mild diffuse tenderness) Sign Out Sign Out Data: Sign Out Comment: 23-year-old male here with loose stool and bright red blood per rectum over the past 3 to 4 days with associated fever and bodyaches. Labs nondiagnostic. CT of the abdomen pelvis and stool cultures pending at time of signout. Dispo pending CT abdomen pelvis and reassessment. Last updated by Hernan Aragon MD at 03/11/24 15:23 Discharge Plan Disposition Patient Disposition: Home Discharge Details Clinical Impression: Colitis Primary Care Provider: Unknown,Unknown ED Provider: Mami Jha Home Meds and New Rx's Prescriptions: No Action No Known Home Meds Discharge Instructions Instructions: Colitis, Full Liquid Diet Additional Instructions: Please follow-up with general surgery. Call to schedule an appointment for colonoscopy. A referral has been made for you. I recommend that you contact your primary care physician to arrange follow-up. I recommend that you stick to a clear liquid diet for the next couple of days, advancing diet slowly as tolerated to include full liquids. Be sure to drink plenty of electrolyte rich fluids such as Gatorlyte. Return to the ER immediately for any worsening or new concerning symptoms including increased pain, inability to hold down fluids, bleeding, fatigue, and/or lightheadedness. Referrals: [facility] [Provider Group]
--- NOTE | 2024-03-11 16:45 | DI.VRAD_ITS ---
PROCEDURE INFORMATION: Exam: CT Abdomen And Pelvis With Contrast Exam date and time: 03/11/2024 3:47 PM Age: 23 years old Clinical indication: Other: Abd pain, brbpr, loose stool, fever TECHNIQUE: Imaging protocol: Computed tomography of the abdomen and pelvis with contrast. Contrast material: OMNIPAQUE 350; Contrast volume: 100 ml; Contrast route: INTRAVENOUS (IV); COMPARISON: CT CHEST/ABD/PEL W 11/24/2022 10:44 PM FINDINGS: Liver: Normal. No mass. Gallbladder and biliary ducts: Normal. No calcified stones. No ductal dilation. Pancreas: Normal. No ductal dilation. Spleen: Normal. No splenomegaly. Adrenal glands: Normal. No mass. Kidneys and ureters: There is no evidence of renal or ureteral calcifications. Stomach and bowel: Bowel wall thickening in the region of the distal rectosigmoid and rectum with mild pericolonic inflammatory changes (series 4 image 734, 735.). This may represent colitis/proctitis in the appropriate clinical setting. Appendix: Normal appendix Intraperitoneal space: Unremarkable. No free air. No significant fluid collection. Vasculature: Unremarkable. No abdominal aortic aneurysm. Lymph nodes: Unremarkable. No enlarged lymph nodes. Urinary bladder: Bladder is distended 8.7 cm Reproductive: Unremarkable as visualized. Bones/joints: Unremarkable. No acute fracture. Soft tissues: Unremarkable. IMPRESSION: Bowel wall thickening in the region of the distal rectosigmoid and rectum with mild pericolonic inflammatory changes (series 4 image 734, 735.). This may represent colitis/proctitis in the appropriate clinical setting. Dictated and Authenticated by: Joceline Collins MD. Ordering:ELICEO Becerra MD
[2024-03-13 11:28] LABS: Campylobacter PCR Negative (Negative); Salmonella PCR Negative (Negative); Shiga Toxin PCR Negative (Negative); Shigella/Enteroinvasive Ecoli Negative (Negative)
== END 2024-03-11 17:07 | disposition home or self-care (01) ==
PROVIDERS: Student in an Organized Health Care Education/Training Program; Emergency Provider Nurse Practitioner Family
DX: R19.7 Diarrhea, unspecified (principal); K52.9 Noninfective gastroenteritis and colitis, unspecified; R52 Pain, unspecified; R50.9 Fever, unspecified
CPT/HCPCS: 00123; 80053; 86850; 86900; 86901; 87505; 87637; 99285; 74177; 85025; 99283; J3490

== ENCOUNTER → 2024-03-16 10:58 | Outpatient (BNVA) | payer OTHER, SELFPAY | PROVIDERS: Visit Provider Physical Therapy Assistant | DX: K62.5 Hemorrhage of anus and rectum (principal); K52.9 Noninfective gastroenteritis and colitis, unspecified | CPT/HCPCS: 99213 ==

== ENCOUNTER 2024-03-23 07:22 | Day surgery (SDC) | payer OTHER, SELFPAY ==
[2024-03-23 08:25] VITALS: BP 112/79; PULSE 106; RESP 18; TEMP 35.2; O2SAT 96
[2024-03-23] MEDS: Lactated Ringers 1,000 ML 80 ML IV (08:46)
--- NOTE | 2024-03-23 09:10 | ANES.PREOP_ITS ---
General Info Date of Service Date Performed: 03/23/24 Height: 5 ft 9 in Weight: 93 kg Body Mass Index (BMI): 30.2 Surgical Procedure: Operation Date: 03/23/24 09:35 Proposed Procedure Side Surgeon p Colonoscopy Cole MOREL MD Actual Procedure Side Surgeon p Colonoscopy Not Applicable Cole MOREL MD Meds Allergies and Home Medications Allergies Allergy/AdvReac Type Severity Reaction Status Date / Time lactose AdvReac Mild Nausea Verified 03/23/24 08:14 seasonal Allergy Unknown Other (See Uncoded 03/23/24 08:14 Comment) Home Medication ?Medication ?Instructions ?Recorded bisacodyl 5 mg tablet,delayed 5 mg PO ONCE #4 tabs 03/16/24 release (Dulcolax (bisacodyl)) polyethylene glycol 3350 17 17 g PO ONCE #238 grams 03/16/24 gram/dose oral powder Current Visit Medications: Current Medications Generic Name Dose Route Start Last Admin Trade Name Freq PRN Reason Stop Dose Admin Ringer's Solution 1,000 mls @ 80 mls/hr 03/23/24 06:00 03/23/24 08:46 IV 03/23/24 23:59 80 mls/hr INFUSION CORINNE Administration IV Miscellaneous Supplies 1 each 03/23/24 06:00 Iv Access IV 03/23/24 23:59 DIRECTED CORINNE Sodium Chloride 0 ml 03/23/24 06:00 Normal Saline Flush 10 Ml Syr IV 03/23/24 23:59 PRN PRN Sodium Chloride 0 ml 03/23/24 06:00 Normal Saline 10 Ml Vial IJ 03/23/24 23:59 DIRECTED PRN Sterile Water 0 ml 03/23/24 06:00 Water,Injection,Sterile 10 Ml Vial IJ 03/23/24 23:59 DIRECTED PRN PFSH Active Problems Active Problems: Problem Status Onset Code Rectal bleeding Acute K62.5 Colitis Acute K52.9 Dyspnea Acute R06.00 Cough Acute R05.9 Tobacco Smoking/Tobacco Use Status: Never Alcohol Alcohol Intake: current Alcohol intake frequency: a few times a week Substance Use Substance use: Never Substance use type: does not use Vital Signs and Lab Results Vital Signs Most Recent Vital Signs in EMR: Most Recent Vital Signs Temp Pulse Resp BP Pulse Ox 35.2 C L 106 H 18 112/79 96 03/23/24 08:25 03/23/24 08:25 03/23/24 08:25 03/23/24 08:25 03/23/24 08:25 Lab Results Blood Type / Crossmatch: Antibody Screen NEGATIVE 03/11/24 Complete Blood Count: White Blood Count 6.44 10^3/uL (4.4-10.8) 03/11/24 13:48 Red Blood Count 5.17 10^6/uL (4.36-5.78) 03/11/24 13:48 Hemoglobin 14.4 g/dL (13.5-17.5) 03/11/24 13:48 Hematocrit 45.0 % (40.0-50.0) 03/11/24 13:48 Platelet Count 252 10^3/uL (130-400) 03/11/24 13:48 Complete Metabolic Panel: Sodium 140 mmol/L (136-145) 03/11/24 13:48 Potassium 3.8 mmol/L (3.5-5.1) 03/11/24 13:48 Chloride 103 mmol/L (98-107) 03/11/24 13:48 Carbon Dioxide 29.2 mmol/L (21.0-32.0) 03/11/24 13:48 BUN 15 mg/dL (7-18) 03/11/24 13:48 Creatinine 1.1 mg/dL (0.70-1.30) 03/11/24 13:48 Est GFR (CKD-EPI 2020) 97.34 (mL/min/1.73m2) 03/11/24 13:48 Calcium 9.3 mg/dL (8.5-10.1) 03/11/24 13:48 Albumin 3.9 g/dL (3.4-5.0) 03/11/24 13:48 Glucose 95 mg/dL (74-106) 03/11/24 13:48 Liver Function Panel: Alanine Aminotransferase (ALT/SGPT) 28 U/L (16-63) 03/11/24 13: 48 Aspartate Amino Transf (AST/SGOT) 22 U/L (15-37) 03/11/24 13:48 Coagulation Panel: No Data to Display Cardiac Panel: No Data to Display Arterial Blood Gas: No Data to Display Venous Blood Gas: No Data to Display Pancreas Panel: No Data to Display Thyroid Panel: No Data to Display Infectious Disease: Coronavirus (COVID-19)(PCR) Negative (Negative) 03/11/24 14:23 Coronavirus 2019 Source Nasopharynx 03/11/24 14:23 Influenza Virus Type A (PCR) Negative (Negative) 03/11/24 14:2 3 Influenza Virus Type B (PCR) Negative (Negative) 03/11/24 14:2 3 Respiratory Syncytial Virus (PCR) Negative (Negative) 03/11/24 14:23 Blood Cultures: No Data to Display Toxicology Panel: No Data to Display Anesthesia Assessment and Plan Anesthesia History Personal History: No History of General Anesthesia Family History: No Family History of Anesthesia Complications Exercise Tolerance Exercise Tolerance: Metabolic Equivalents>4 Pertinent Negatives Pertinent Negatives: No Symptoms of GERD Cardiac & Pulmonary Exam Cardiac Exam: Normal S1/S2 Heart Sounds Pulmonary Exam: Clear Bilateral Breath Sounds Implantable Cardiac Device Does patient have a Pacemaker or an ICD?: No Airway Exam Known Difficult Airway: No Mallampati Class: 2 Mouth Opening: Normal (> 3cm) Thyromental Distance: Greater than 3 cm Neck Range of Motion: Full ROM Neck Circumference: Normal Teeth Condition: Normal Dentition ASA Classification ASA Score: ASA 2 Emergency Case?: No NPO Status NPO Status: NPO Clears >2 hours, Solids >8 hours Anesthesia Plan Resuscitation Status: Full Code Anesthesia Technique: General Anesthesia Airway Planned: Natural Airway Monitors Used: Standard Monitors
[2024-03-23 09:11] VITALS: BMI 30.2
--- NOTE | 2024-03-23 09:49 | ROE_ITS ---
Date of service: 03/23/24 Time of Service: 09:49 Operative Note Operative Note PRE-OP DIAGNOSIS: Diarrhea, bright red blood per rectum POST-OP DIAGNOSIS: other (Proctitis, incomplete colonoscopy due to inadequate bowel prep) PROCEDURE: Colonoscopy SURGEON: Cole CINTRONRH ANESTHESIA TYPE: MAC Refer to Anesthesia Record PATHOLOGY: other (Left colon random mucosal biopsies, rectal biopsies) COMPLICATIONS: None Patient was transported to: PACU Patient's condition: stable Findings: Significant inflammation of the distal rectal mucosa. Inadequate bowel prep with paste like stool coating the entire left colon, with inability to progress any further than 65 cm from anal verge. Procedure Description: After obtaining informed consent, patient was brought back to the endoscopy suite. He was turned on his left side and connected to the monitors. Timeout was performed. Propofol was administered by the nurse software support analyst. I began by performing a digital rectal exam. This revealed some small external hemorrhoids that were not inflamed. No blood. I inserted the colonoscope. I did immediately notice significant inflammation of the distal rectal mucosa. His colon was also full of stool. He had pastelike stool adherent to the lamar of the colon circumferentially. I attempted to advance the length of the colon. At about 65 cm I determined that my view was not sufficiently adequate to proceed safely. I took random mucosal biopsies from that point all the way down to the distal sigmoid. These were sent to pathology. In the rectum I also took mucosal biopsies of the particularly inflamed area. I did retroflex and this was remarkable for this is significant thickening and irritated and inflamed appearing mucosa. I decompressed the rectum and withdrew the scope. Patient tolerated well. He went to recovery in stable condition. Disposition: Patient will be discharged home later today. We will call him with the pathology report. Further recommendations will be pending the pathology.
[2024-03-23 09:52] VITALS: BP 116/77; PULSE 92; RESP 16; TEMP 36.8; O2SAT 97
--- NOTE | 2024-03-23 09:59 | W.ANESPOSTOP ---
Postoperative Evaluation Date, Time and Location Date Performed: 03/23/24 Time Performed: 10:00 Patient Location: Day Surgery Unit Vital Signs Most Recent Imported Vital Signs: Most Recent Vital Signs Temp Pulse Resp BP Pulse Ox 36.8 C 92 H 16 116/77 97 03/23/24 09:52 03/23/24 09:52 03/23/24 09:52 03/23/24 09:52 03/23/24 09:52 Pain Score Most Recent Pain Score: Most Recent Pain Score Pain Level 0 03/23/24 09:52 Assessment Mental Status: Awake (Alert & Oriented to Patient Baseline) Airway and Respiratory Function: Patent airway with normal (patient baseline) respiratory exam Cardiovascular Function: Hemodynamically Stable Hydration Status: Adequately Hydrated Nausea & Vomiting: No Nausea or Vomiting Pain: Pt. Denies Any Pain Peripheral Nerve Block: Patient did not receive a nerve block
[2024-03-23 10:22] VITALS: BP 131/80; PULSE 89; RESP 16; TEMP 37.2; O2SAT 98
== END 2024-03-23 10:35 | disposition home or self-care (01) ==
PROVIDERS: Visit Provider Surgery
PROC: 0DJD8ZZ Inspection of Lower Intestinal Tract, Via Natural or Artificial Opening Endoscopic (ICD-10-PCS; CPT 45378; principal; 2024-03-23 09:30)
DX: K62.5 Hemorrhage of anus and rectum (principal); R19.7 Diarrhea, unspecified; K64.8 Other hemorrhoids; K62.6 Ulcer of anus and rectum
CPT/HCPCS: 45380; 00123; 88305; 88361; J2704